=== PATIENT | female | born 1955 | race Two or more races ===

== ENCOUNTER 2018-05-12 08:12 | Day surgery (SDC) | payer OTHER ==
[~2018-05-12 08:12] MED LIST: COZAAR PO; COZAAR50 MG PO; LANTUS; LIPITOR20 MG PO; PAXIL PO; TOPROL XL25 M1 PO; [UNRECOGNIZED DRUG - OTHER] PO; [UNRECOGNIZED DRUG - OTHER] PO
== END 2018-05-12 16:20 | disposition home or self-care (01) ==
LOC: CIR.AMB 08:12
DX: G56.02 Carpal tunnel syndrome, left upper limb (principal)